=== PATIENT | male | born 1955 | race Caucasian/White ===

== ENCOUNTER 2020-07-24 09:45 | Inpatient (IN) ==
[2020-07-25] MEDS ORDERED: *HR* OxyCODONE Immed Rel 5 MG TABLET PO PRN (17:02)
[2020-07-25] MEDS ORDERED: Albuterol 2.5 MG/3 ML NEBULIZER IH PRN (17:02)
[2020-07-25] MEDS: Azithromycin 250 MG TABLET PO SCH (18:41)
[2020-07-25] MEDS: Budesonide/Formoterol 160/4.5 1 PUFF INH IH SCH (19:58)
[2020-07-25] MEDS: Temazepam 15 MG CAPSULE PO SCH (23:10)
[2020-07-25] MEDS: diazePAM 5 MG TABLET PO PRN (23:10)
[2020-07-25] MEDS: *HR* OxyCODONE Immed Rel 5 MG TABLET PO PRN (23:11)
[2020-07-25] MEDS: Gabapentin 300 MG CAPSULE PO SCH (23:11)
[2020-07-25] MEDS: tiZANidine 4 MG TABLET PO PRN (23:12)
[2020-07-26] MEDS: Acetaminophen 325 MG TABLET PO PRN ×2 (03:36→13:00)
[2020-07-26 05:10] LABS: Basophils % 0.1 %; Hematocrit 25.6 % (37.5-50.1); Hemoglobin 7.7 g/dL (12.9-16.9); Immature Granulocytes % 0.6 % (0-4); Lymphocytes # 1.1 K/mcL (0.6-4.6); Mean Corpuscular HGB Conc 30.1 g/dL (31.6-35.5); Mean Corpuscular Hemoglobin 25.1 pg (28.0-33.3); Mean Corpuscular Volume 83.4 fL (83.0-100.0); Mean Platelet Volume 9.7 fL (9.4-12.4); Monocytes # 0.6 K/mcL (0.0-1.3); Monocytes % 8.4 %; Neutrophils # 5.2 K/mcL (1.6-8.9); Nucleated Red Blood Cells 0.4 /100 WBC (0); Platelet Count 214 K/mcL (140-400); Red Blood Count 3.07 M/mcL (4.19-5.50); Red Cell Distribution Width 17.4 % (11.5-14.5); Segmented Neutrophils % 74.9 %
[2020-07-26 05:29] LABS: BUN/Creatinine Ratio 22 (6-26); Blood Urea Nitrogen 21 mg/dL (8-23); Calcium 8.6 mg/dL (8.6-10.3); Carbon Dioxide 28 mEq/L (23-29); Chloride 103 mEq/L (98-107); Glucose 126 mg/dL (70-105); Osmolality,Calculated 289 (280-300); Potassium 3.8 mEq/L (3.5-5.1); Sodium 137 mEq/L (136-145); eGFR For African Americans > 60 (> 60); eGFR For Non-African Americans > 60 (> 60)
[2020-07-26] MEDS: *HR* OxyCODONE Immed Rel 5 MG TABLET PO PRN ×3 (06:34→20:10)
[2020-07-26] MEDS: tiZANidine 4 MG TABLET PO PRN ×2 (07:55→15:22)
[2020-07-26] MEDS: Gabapentin 300 MG CAPSULE PO SCH ×4 (10:15→20:10)
[2020-07-26] MEDS: Isosorbide MONOnitrate (24 HR) 30 MG TAB.ER.24H PO SCH (10:15)
[2020-07-26] MEDS: Aspirin Enteric Coated 81 MG Tablet PO SCH (10:15)
[2020-07-26] MEDS: DilTIAZem CD (24hr) 120 MG CAP.ER.24H PO SCH (10:15)
[2020-07-26] MEDS: predniSONE 20 MG TABLET PO SCH (10:15)
[2020-07-26] MEDS: hydroCHLOROthiazide 25 MG TABLET PO SCH (10:15)
[2020-07-26] MEDS: diazePAM 5 MG TABLET PO PRN ×2 (10:15→18:21)
[2020-07-26] MEDS: Tiotropium 10 INH DOSE IH SCH (10:17)
[2020-07-26] MEDS: Budesonide/Formoterol 160/4.5 1 PUFF INH IH SCH ×2 (10:18→20:05)
[2020-07-26] MEDS: Azithromycin 250 MG TABLET PO SCH (18:21)
[2020-07-26] MEDS: Temazepam 15 MG CAPSULE PO SCH (20:10)
[2020-07-27] MEDS: tiZANidine 4 MG TABLET PO PRN ×3 (00:47→21:09)
[2020-07-27] MEDS: Acetaminophen 325 MG TABLET PO PRN ×3 (00:47→21:08)
[2020-07-27] MEDS: *HR* OxyCODONE Immed Rel 5 MG TABLET PO PRN ×3 (04:36→17:58)
[2020-07-27 05:06] LABS: Eosinophils % 0.2 %; Hematocrit 28.4 % (37.5-50.1); Hemoglobin 8.5 g/dL (12.9-16.9); Immature Granulocytes % 0.7 % (0-4); Lymphocytes # 1.3 K/mcL (0.6-4.6); Lymphocytes % 21.1 %; Mean Corpuscular HGB Conc 29.9 g/dL (31.6-35.5); Mean Corpuscular Hemoglobin 25.1 pg (28.0-33.3); Mean Corpuscular Volume 83.8 fL (83.0-100.0); Mean Platelet Volume 9.9 fL (9.4-12.4); Monocytes # 0.5 K/mcL (0.0-1.3); Monocytes % 8.9 %; Neutrophils # 4.1 K/mcL (1.6-8.9); Nucleated Red Blood Cells 0.5 /100 WBC (0); Platelet Count 236 K/mcL (140-400); Red Blood Count 3.39 M/mcL (4.19-5.50); Red Cell Distribution Width 17.5 % (11.5-14.5); Segmented Neutrophils % 69.1 %
[2020-07-27 05:18] LABS: BUN/Creatinine Ratio 23 (6-26); Blood Urea Nitrogen 20 mg/dL (8-23); Carbon Dioxide 30 mEq/L (23-29); Chloride 101 mEq/L (98-107); Glucose 127 mg/dL (70-105); Osmolality,Calculated 290 (280-300); Sodium 138 mEq/L (136-145); eGFR For African Americans > 60 (> 60); eGFR For Non-African Americans > 60 (> 60)
[2020-07-27] MEDS: diazePAM 5 MG TABLET PO PRN ×2 (06:26→18:03)
[2020-07-27] MEDS: Tiotropium 10 INH DOSE IH SCH (09:36)
[2020-07-27] MEDS: Budesonide/Formoterol 160/4.5 1 PUFF INH IH SCH ×2 (09:37→21:27)
[2020-07-27] MEDS: Levalbuterol 1 PUFF INHALER IH PRN ×2 (09:39→21:25)
[2020-07-27] MEDS: Isosorbide MONOnitrate (24 HR) 30 MG TAB.ER.24H PO SCH (09:51)
[2020-07-27] MEDS: Gabapentin 300 MG CAPSULE PO SCH ×4 (09:51→21:07)
[2020-07-27] MEDS: DilTIAZem CD (24hr) 120 MG CAP.ER.24H PO SCH (09:51)
[2020-07-27] MEDS: predniSONE 20 MG TABLET PO SCH (09:52)
[2020-07-27] MEDS: hydroCHLOROthiazide 25 MG TABLET PO SCH (09:52)
[2020-07-27] MEDS: Aspirin Enteric Coated 81 MG Tablet PO SCH (09:52)
[2020-07-27] MEDS: Azithromycin 250 MG TABLET PO SCH (17:58)
[2020-07-27] MEDS: Temazepam 15 MG CAPSULE PO SCH (21:07)
[2020-07-28] MEDS: *HR* OxyCODONE Immed Rel 5 MG TABLET PO PRN ×2 (03:29→10:02)
[2020-07-28] MEDS: Acetaminophen 325 MG TABLET PO PRN (06:09)
[2020-07-28] MEDS: tiZANidine 4 MG TABLET PO PRN ×2 (06:09→14:32)
[2020-07-28] MEDS: Budesonide/Formoterol 160/4.5 1 PUFF INH IH SCH ×2 (08:07→20:53)
[2020-07-28] MEDS: Levalbuterol 1 PUFF INHALER IH PRN ×2 (08:07→20:53)
[2020-07-28] MEDS: Tiotropium 10 INH DOSE IH SCH (08:08)
[2020-07-28] MEDS: diazePAM 5 MG TABLET PO PRN ×2 (10:01→19:34)
[2020-07-28] MEDS: DilTIAZem CD (24hr) 120 MG CAP.ER.24H PO SCH (10:01)
[2020-07-28] MEDS: Aspirin Enteric Coated 81 MG Tablet PO SCH (10:01)
[2020-07-28] MEDS: Isosorbide MONOnitrate (24 HR) 30 MG TAB.ER.24H PO SCH (10:02)
[2020-07-28] MEDS: predniSONE 20 MG TABLET PO SCH (10:02)
[2020-07-28] MEDS: hydroCHLOROthiazide 25 MG TABLET PO SCH (10:02)
[2020-07-28] MEDS: Gabapentin 300 MG CAPSULE PO SCH ×4 (10:03→20:35)
[2020-07-28] MEDS ORDERED: *HR* OxyCODONE/APAP 5/325 TABLET PO PRN (13:01)
[2020-07-28] MEDS: *HR* OxyCODONE/APAP 7.5/325 TABLET PO PRN ×2 (14:32→20:35)
[2020-07-28] MEDS: Temazepam 15 MG CAPSULE PO SCH (20:34)
[2020-07-29] MEDS: *HR* OxyCODONE/APAP 7.5/325 TABLET PO PRN ×4 (05:33→21:16)
[2020-07-29] MEDS: tiZANidine 4 MG TABLET PO PRN ×2 (06:51→13:23)
[2020-07-29] MEDS: DilTIAZem CD (24hr) 120 MG CAP.ER.24H PO SCH (08:16)
[2020-07-29] MEDS: diazePAM 5 MG TABLET PO PRN ×2 (08:16→21:24)
[2020-07-29] MEDS: Gabapentin 300 MG CAPSULE PO SCH ×4 (08:16→21:06)
[2020-07-29] MEDS: predniSONE 10 MG TABLET PO SCH (08:16)
[2020-07-29] MEDS: hydroCHLOROthiazide 25 MG TABLET PO SCH (08:17)
[2020-07-29] MEDS: Aspirin Enteric Coated 81 MG Tablet PO SCH (08:17)
[2020-07-29] MEDS: Isosorbide MONOnitrate (24 HR) 30 MG TAB.ER.24H PO SCH (08:17)
[2020-07-29] MEDS: Levalbuterol 1 PUFF INHALER IH PRN ×2 (09:16→19:53)
[2020-07-29] MEDS: Budesonide/Formoterol 160/4.5 1 PUFF INH IH SCH ×2 (09:16→19:53)
[2020-07-29] MEDS: Tiotropium 10 INH DOSE IH SCH (09:17)
[2020-07-29] MEDS ORDERED: *HR* OxyCODONE/APAP 5/325 TABLET PO PRN (15:06)
[2020-07-29] MEDS: Temazepam 15 MG CAPSULE PO SCH (21:10)
[2020-07-30] MEDS: *HR* OxyCODONE/APAP 7.5/325 TABLET PO PRN ×2 (01:43→06:08)
[2020-07-30] MEDS: tiZANidine 4 MG TABLET PO PRN ×2 (01:44→08:13)
[2020-07-30] MEDS: diazePAM 5 MG TABLET PO PRN (06:15)
[2020-07-30] MEDS: Aspirin Enteric Coated 81 MG Tablet PO SCH (08:12)
[2020-07-30] MEDS: Isosorbide MONOnitrate (24 HR) 30 MG TAB.ER.24H PO SCH (08:12)
[2020-07-30] MEDS: Gabapentin 300 MG CAPSULE PO SCH (08:12)
[2020-07-30] MEDS: hydroCHLOROthiazide 25 MG TABLET PO SCH (08:12)
[2020-07-30] MEDS: DilTIAZem CD (24hr) 120 MG CAP.ER.24H PO SCH (08:12)
[2020-07-30] MEDS: predniSONE 10 MG TABLET PO SCH (08:12)
[2020-07-30] MEDS: Tiotropium 10 INH DOSE IH SCH (09:10)
[2020-07-30] MEDS: Levalbuterol 1 PUFF INHALER IH PRN (09:10)
[2020-07-30] MEDS: Budesonide/Formoterol 160/4.5 1 PUFF INH IH SCH (09:11)
[2020-07-30 10:08] VITALS: BP 145/80
[2020-07-31] MEDS ORDERED: predniSONE 20 MG TABLET PO SCH (09:00)
[2020-08-02] MEDS ORDERED: predniSONE 10 MG TABLET PO SCH (09:00)
== END 2020-07-30 11:05 | disposition home health service (06) | DRG 559 ==
LOC: INPGRE 07-25 15:52
PROVIDERS: ADMIT Family Medicine; ATTEND Family Medicine

== ENCOUNTER 2021-01-12 10:36 | Inpatient (IN) ==
[2021-01-12] MEDS ORDERED: Levalbuterol 1 PUFF INHALER IH PRN (16:53)
[2021-01-12] MEDS ORDERED: *HR* OxyCODONE Immed Rel 5 MG TABLET PO PRN (16:53)
[2021-01-12] MEDS ORDERED: Nitroglycerin 0.4 MG TAB.SUBL SL PRN (16:53)
[2021-01-12] MEDS: *HR* OxyCODONE Immed Rel 5 MG TABLET PO PRN ×2 (17:23→22:01)
[2021-01-12] MEDS: Ranolazine 500 MG TAB.ER.12H PO SCH (20:38)
[2021-01-12] MEDS: Pregabalin 75 MG CAPSULE PO SCH (20:38)
[2021-01-12] MEDS: Famotidine 20 MG TABLET PO SCH (20:38)
[2021-01-12] MEDS ORDERED: Apixaban 5 MG TABLET PO SCH (21:00)
[2021-01-12] MEDS: diazePAM 5 MG TABLET PO PRN (22:00)
[2021-01-13] MEDS: *HR* OxyCODONE Immed Rel 5 MG TABLET PO PRN ×3 (02:26→11:35)
[2021-01-13 05:12] LABS: Basophils % 0.3 %; Eosinophils % 0.5 %; Hematocrit 30.7 % (37.5-50.1); Hemoglobin 9.1 g/dL (12.9-16.9); Immature Granulocytes % 0.5 % (0-4); Lymphocytes # 1.2 K/mcL (0.6-4.6); Lymphocytes % 29.8 %; Mean Corpuscular HGB Conc 29.6 g/dL (31.6-35.5); Mean Corpuscular Hemoglobin 24.4 pg (28.0-33.3); Mean Corpuscular Volume 82.3 fL (83.0-100.0); Mean Platelet Volume 9.3 fL (9.4-12.4); Monocytes # 0.6 K/mcL (0.0-1.3); Monocytes % 15.8 %; Neutrophils # 2.1 K/mcL (1.6-8.9); Platelet Count 260 K/mcL (140-400); Red Blood Count 3.73 M/mcL (4.19-5.50); Red Cell Distribution Width 21.5 % (11.5-14.5); Segmented Neutrophils % 53.1 %; White Blood Count 3.9 K/mcL (4.3-11.1)
[2021-01-13 05:29] LABS: Platelet Estimate Normal (Normal)
[2021-01-13 05:31] LABS: Alanine Aminotransferase 12 Units/L (7-52); Albumin 3.1 g/dL (3.5-5.7); Alkaline Phosphatase 71 Units/L (34-104); Aspartate Amino Transferase 15 Units/L (13-39); BUN/Creatinine Ratio 19 (6-26); Bilirubin,Total 0.3 mg/dL (0.3-1.0); Blood Urea Nitrogen 17 mg/dL (8-23); Carbon Dioxide 31 mEq/L (23-29); Chloride 101 mEq/L (98-107); Globulin 3.1 g/dL (2.4-3.5); Glucose 104 mg/dL (70-105); Magnesium 1.9 mg/dL (1.6-2.6); Osmolality,Calculated 286 (280-300); Sodium 137 mEq/L (136-145); Total Protein 6.2 g/dL (6.4-8.9); eGFR For African Americans > 60 (> 60); eGFR For Non-African Americans > 60 (> 60)
[2021-01-13] MEDS: Tiotropium 10 INH DOSE IH SCH (08:25)
[2021-01-13] MEDS: Budesonide/Formoterol 160/4.5 1 PUFF INH IH SCH ×2 (08:26→19:18)
[2021-01-13] MEDS: Pregabalin 75 MG CAPSULE PO SCH ×2 (09:41→20:55)
[2021-01-13] MEDS: Isosorbide MONOnitrate (24 HR) 60 MG TAB.ER.24H PO SCH (09:41)
[2021-01-13] MEDS: Famotidine 20 MG TABLET PO SCH ×2 (09:41→20:57)
[2021-01-13] MEDS: DilTIAZem CD (24hr) 120 MG CAP.ER.24H PO SCH (09:41)
[2021-01-13] MEDS: Ranolazine 500 MG TAB.ER.12H PO SCH ×2 (09:42→20:55)
[2021-01-13] MEDS: Aspirin Enteric Coated 81 MG Tablet PO SCH (09:42)
[2021-01-13] MEDS: diazePAM 5 MG TABLET PO PRN ×2 (09:42→18:43)
[2021-01-13] MEDS: hydroCHLOROthiazide 25 MG TABLET PO SCH (09:42)
[2021-01-13] MEDS ORDERED: *HR* OxyCODONE/APAP 5/325 TABLET PO PRN (16:13)
[2021-01-13] MEDS: *HR* OxyCODONE/APAP 7.5/325 TABLET PO PRN ×2 (16:46→23:15)
[2021-01-14] MEDS: diazePAM 5 MG TABLET PO PRN ×2 (03:39→21:27)
[2021-01-14] MEDS: Isosorbide MONOnitrate (24 HR) 60 MG TAB.ER.24H PO SCH (08:16)
[2021-01-14] MEDS: Pregabalin 75 MG CAPSULE PO SCH ×2 (08:16→21:26)
[2021-01-14] MEDS: *HR* OxyCODONE/APAP 7.5/325 TABLET PO PRN ×3 (08:16→19:43)
[2021-01-14] MEDS: Famotidine 20 MG TABLET PO SCH ×2 (08:16→21:26)
[2021-01-14] MEDS: Aspirin Enteric Coated 81 MG Tablet PO SCH (08:16)
[2021-01-14] MEDS: Ranolazine 500 MG TAB.ER.12H PO SCH ×2 (08:16→21:26)
[2021-01-14] MEDS: DilTIAZem CD (24hr) 120 MG CAP.ER.24H PO SCH (08:16)
[2021-01-14] MEDS: hydroCHLOROthiazide 25 MG TABLET PO SCH (08:17)
[2021-01-14] MEDS: Budesonide/Formoterol 160/4.5 1 PUFF INH IH SCH ×2 (09:15→20:26)
[2021-01-14] MEDS: Tiotropium 10 INH DOSE IH SCH (09:15)
[2021-01-15] MEDS: diazePAM 5 MG TABLET PO PRN ×2 (04:15→21:48)
[2021-01-15] MEDS: *HR* OxyCODONE/APAP 7.5/325 TABLET PO PRN ×4 (04:15→23:04)
[2021-01-15] MEDS: Budesonide/Formoterol 160/4.5 1 PUFF INH IH SCH ×2 (07:16→20:43)
[2021-01-15] MEDS: Tiotropium 10 INH DOSE IH SCH (07:17)
[2021-01-15] MEDS: Famotidine 20 MG TABLET PO SCH ×2 (07:28→21:48)
[2021-01-15] MEDS: Ranolazine 500 MG TAB.ER.12H PO SCH ×2 (07:29→21:48)
[2021-01-15] MEDS: Aspirin Enteric Coated 81 MG Tablet PO SCH (07:29)
[2021-01-15] MEDS: hydroCHLOROthiazide 25 MG TABLET PO SCH (07:29)
[2021-01-15] MEDS: Isosorbide MONOnitrate (24 HR) 60 MG TAB.ER.24H PO SCH (07:29)
[2021-01-15] MEDS: DilTIAZem CD (24hr) 120 MG CAP.ER.24H PO SCH (07:29)
[2021-01-15] MEDS: Pregabalin 75 MG CAPSULE PO SCH ×2 (07:30→21:48)
[2021-01-16] MEDS: Isosorbide MONOnitrate (24 HR) 60 MG TAB.ER.24H PO SCH (08:25)
[2021-01-16] MEDS: Ranolazine 500 MG TAB.ER.12H PO SCH ×2 (08:25→19:51)
[2021-01-16] MEDS: hydroCHLOROthiazide 25 MG TABLET PO SCH (08:25)
[2021-01-16] MEDS: Famotidine 20 MG TABLET PO SCH ×2 (08:25→19:51)
[2021-01-16] MEDS: Pregabalin 75 MG CAPSULE PO SCH ×2 (08:26→19:52)
[2021-01-16] MEDS: *HR* OxyCODONE/APAP 7.5/325 TABLET PO PRN ×3 (08:26→19:51)
[2021-01-16] MEDS: Aspirin Enteric Coated 81 MG Tablet PO SCH (08:26)
[2021-01-16] MEDS: DilTIAZem CD (24hr) 120 MG CAP.ER.24H PO SCH (08:26)
[2021-01-16] MEDS: Tiotropium 10 INH DOSE IH SCH (09:00)
[2021-01-16] MEDS: Budesonide/Formoterol 160/4.5 1 PUFF INH IH SCH ×2 (09:00→20:15)
[2021-01-16] MEDS: diazePAM 5 MG TABLET PO PRN ×2 (10:38→21:51)
[2021-01-17] MEDS: *HR* OxyCODONE/APAP 7.5/325 TABLET PO PRN (04:40)
[2021-01-17 04:53] LABS: Basophils % 0.5 %; Eosinophils % 0.7 %; Hematocrit 30.7 % (37.5-50.1); Hemoglobin 9.2 g/dL (12.9-16.9); Immature Granulocytes % 1.6 % (0-4); Lymphocytes # 1.3 K/mcL (0.6-4.6); Lymphocytes % 29.4 %; Mean Corpuscular Hemoglobin 24.5 pg (28.0-33.3); Mean Corpuscular Volume 81.6 fL (83.0-100.0); Monocytes # 0.5 K/mcL (0.0-1.3); Monocytes % 11.1 %; Neutrophils # 2.5 K/mcL (1.6-8.9); Platelet Count 278 K/mcL (140-400); Red Blood Count 3.76 M/mcL (4.19-5.50); Red Cell Distribution Width 21.1 % (11.5-14.5); Segmented Neutrophils % 56.7 %; White Blood Count 4.3 K/mcL (4.3-11.1)
[2021-01-17 04:55] LABS: Platelet Estimate Normal (Normal)
[2021-01-17 05:07] LABS: BUN/Creatinine Ratio 29 (6-26); Blood Urea Nitrogen 24 mg/dL (8-23); Calcium 9.2 mg/dL (8.6-10.3); Carbon Dioxide 26 mEq/L (23-29); Chloride 103 mEq/L (98-107); Glucose 129 mg/dL (70-105); Osmolality,Calculated 290 (280-300); Potassium 3.8 mEq/L (3.5-5.1); Sodium 137 mEq/L (136-145); eGFR For African Americans > 60 (> 60); eGFR For Non-African Americans > 60 (> 60)
[2021-01-17] MEDS: Pregabalin 75 MG CAPSULE PO SCH ×2 (09:32→19:44)
[2021-01-17] MEDS: Famotidine 20 MG TABLET PO SCH ×2 (09:33→19:44)
[2021-01-17] MEDS: hydroCHLOROthiazide 25 MG TABLET PO SCH (09:33)
[2021-01-17] MEDS: *HR* OxyCODONE/APAP 5/325 TABLET PO PRN ×4 (09:33→21:53)
[2021-01-17] MEDS: Ranolazine 500 MG TAB.ER.12H PO SCH ×2 (09:34→19:44)
[2021-01-17] MEDS: Isosorbide MONOnitrate (24 HR) 60 MG TAB.ER.24H PO SCH (09:34)
[2021-01-17] MEDS: Aspirin Enteric Coated 81 MG Tablet PO SCH (09:34)
[2021-01-17] MEDS: DilTIAZem CD (24hr) 120 MG CAP.ER.24H PO SCH (09:34)
[2021-01-17] MEDS: Budesonide/Formoterol 160/4.5 1 PUFF INH IH SCH ×2 (09:40→20:34)
[2021-01-17] MEDS: Tiotropium 10 INH DOSE IH SCH (09:41)
[2021-01-17] MEDS: diazePAM 5 MG TABLET PO PRN (19:44)
[2021-01-18] MEDS: *HR* OxyCODONE/APAP 5/325 TABLET PO PRN ×2 (02:51→06:56)
[2021-01-18] MEDS: Budesonide/Formoterol 160/4.5 1 PUFF INH IH SCH (07:34)
[2021-01-18] MEDS: Tiotropium 10 INH DOSE IH SCH (07:35)
[2021-01-18] MEDS: Famotidine 20 MG TABLET PO SCH (08:20)
[2021-01-18] MEDS: hydroCHLOROthiazide 25 MG TABLET PO SCH (08:20)
[2021-01-18] MEDS: Pregabalin 75 MG CAPSULE PO SCH (08:20)
[2021-01-18] MEDS: Isosorbide MONOnitrate (24 HR) 60 MG TAB.ER.24H PO SCH (08:20)
[2021-01-18] MEDS: Aspirin Enteric Coated 81 MG Tablet PO SCH (08:21)
[2021-01-18] MEDS: Ranolazine 500 MG TAB.ER.12H PO SCH (08:21)
[2021-01-18] MEDS: DilTIAZem CD (24hr) 120 MG CAP.ER.24H PO SCH (08:21)
[2021-01-18 16:38] VITALS: BP 134/76; PULSE 70; RESP 18; TEMP 97.4; O2SAT 99
== END 2021-01-18 09:15 | disposition home or self-care (01) | DRG 560 ==
LOC: INPGRE 15:57
PROVIDERS: ADMIT Family Medicine; ATTEND Family Medicine